=== PATIENT | female | born 1960 | race Two or more races ===

== ENCOUNTER 2020-10-30 16:28 | Emergency (ER) | payer MEDICAID ==
[~2020-10-30] VITALS: Ht 152.4 cm; Wt 68.2 kg
[2020-10-30] MEDS ORDERED: SODIUM CHLORIDE FLUSH 10ML SYR IVF ONE (17:00)
[2020-10-30 17:01] LABS: BASOPHILS % (AUTO) 1 % (0-1); EOSINOPHILS % (AUTO) 3 % (1-7); LYMPHOCYTES % (AUTO) 36 % (22-44); MEAN CORPUSCULAR HEMOGLOBIN 30.6 pg (27.0-34.8); MEAN CORPUSCULAR HGB CONC 33.9 g/dL (32.4-35.8); MEAN PLATELET VOLUME 11.2 fL (7.4-10.4); MONOCYTES % (AUTO) 7 % (2-9); NEUTROPHILS % (AUTO) 53 % (42-75); PLATELET COUNT 172 x10^3/uL (130-400); RED BLOOD COUNT 4.67 x10^6/uL (3.82-5.3); RED CELL DISTRIBUTION WIDTH 14.5 % (9.6-15.2)
[2020-10-30 17:13] LABS: ALANINE AMINOTRANSFERASE 92 U/L (12-78); ALBUMIN 3.4 g/dL (3.4-5.0); ANION GAP 4 mmol/L (5-15); CHLORIDE 100 mmol/L (98-107); CREATININE 0.97 mg/dL (0.55-1.02)
[2020-10-30 17:15] LABS: ALKALINE PHOSPHATASE 149 U/L (45-117); BILIRUBIN,TOTAL 0.4 mg/dL (0.2-1.0); TOTAL PROTEIN 7.7 g/dL (6.4-8.2)
--- NOTE | 2020-10-30 21:02 | NUR ---
STARTED 20G IN LEFT AC FOR CT. SENT PT BACK IN LOBBY WITH IV INTACT. PANKAJ FRANCHISE SALES DIRECTOR IS AWARE OF IV.
[2020-10-30] MEDS ORDERED: OMNIPAQUE 350 MG/ML, 100ML BOTTLE ONE (21:03)
[2020-10-30 22:49] VITALS: BP 115/61
--- NOTE | 2020-10-30 22:49 | NUR ---
ERP TO BEDSIDE FOR EVAL
--- NOTE | 2020-10-30 22:50 | NUR ---
THIS IS A 59F THAT COMES IN WITH DAUGHTER FOR DIFFUSE ABD PAIN STS FEELS LIKE GAS, WAS SEEN IN [place] FOR DIVERTICULITIS AND WAS GIVEN ABX ABOUT 2 YRS AGO. PT RESTING ON GURYARIEL NADN RESP EVEN UNLABORED NO NEEDS AT THIS TIME
--- NOTE | 2020-10-30 23:38 | NUR ---
Patient/Caregiver given discharge instructions and they have confirmed that they understand the instructions. Patient ambulatory with steady gait. NAD, all questions answered appropriately, denies additional needs at this time. No personal belongings left in room after discharge.
== END 2020-10-30 23:39 | disposition home or self-care (01) ==
LOC: ED 16:33
DX: R10.84 Generalized abdominal pain (principal); R73.9 Hyperglycemia, unspecified
CPT/HCPCS: 36415; 74177; 80053; 83690; 85025; 99285; Q9967